=== PATIENT | female | born 1945 | race Caucasian/White ===

== ENCOUNTER 2016-06-15 15:20 | Inpatient (IN) | payer MEDICARE, OTHER ==
[~2016-06-15] VITALS: Ht 165.1 cm; Wt 74.2 kg
--- NOTE | 2016-06-15 15:25 | NUR ---
Pt admitted to room 316 via ambulation at this time.
[2016-06-15 16:07] LABS: BASOPHILS % (AUTO) 1 % (0-2); EOSINOPHILS # (AUTO) 0.1 10^3uL; EOSINOPHILS % (AUTO) 2 % (0-4); MEAN CORPUSCULAR HEMOGLOBIN 28.6 PG (26.0-34.0); MEAN CORPUSCULAR HGB CONC 32.8 g/dL (31.0-37.0); MEAN CORPUSCULAR VOLUME 87 FL (80-100); MEAN PLATELET VOLUME 10.2 FL (6.0-9.5); MONOCYTES # (AUTO) 0.5 X10^3; MONOCYTES % (AUTO) 7 % (3-11); NEUTROPHILS # (AUTO) 3.9 X10^3; NEUTROPHILS % (AUTO) 59 % (51-67); PLATELET COUNT 207 10^3uL (150-450); WHITE BLOOD COUNT 6.51 10^3uL (4.0-11.0)
[2016-06-15 16:16] VITALS: BP 138/89
[2016-06-15 16:20] LABS: ALBUMIN 4.4 g/dL (3.4-5.0); ALKALINE PHOSPHATASE 110 U/L (38-126); ANION GAP 15.7 MEQ/L (3-15); BUN/CREATININE RATIO 16 (10-20); CALCULATED IONIZED CALCIUM 3.8 mg/dL (3.8-4.6); MAGNESIUM* 2.3 mg/dL (1.6-2.3); TOTAL PROTEIN 8.1 g/dL (6.4-8.5)
[2016-06-15] MEDS ORDERED: MAGNESIUM HYDROXIDE 80MG/ML (MILK OF MAGNESIA) 30 ML UDC PO PRN (17:05)
[2016-06-15] MEDS ORDERED: POLYETHYLENE GLYCOL 17 GM (MIRALAX) PACKET PO PRN (17:05)
[2016-06-15] MEDS ORDERED: CALCIUM CARBONATE CHEWABLE 300 MG (TUMS) TABLET PO PRN (17:05)
[2016-06-15] MEDS ORDERED: PROMETHAZINE HCL INJ 12.5 MG in SODIUM CHLORIDE 25 ML IV PRN (17:05)
[2016-06-15] MEDS ORDERED: DOCUSATE SODIUM 100 MG (COLACE) CAP PO PRN (17:05)
[2016-06-15] MEDS ORDERED: MAG HYDROX/AL HYDROX/SIMETH 200-200-20/5 ML (MAG-AL PLUS) 30 ML UDC PO PRN (17:05)
[2016-06-15] MEDS ORDERED: FUROSEMIDE 100 MG/10 ML (LASIX) VIAL IV ONE (17:05)
[2016-06-15] MEDS ORDERED: ACETAMINOPHEN 325 MG TAB (TYLENOL) PO PRN (17:05)
[2016-06-15] MEDS ORDERED: ONDANSETRON 4 MG (ZOFRAN) ORAL DISSOLVE TAB PO PRN (17:05)
--- NOTE | 2016-06-15 17:05 | NUR ---
MEDICATION REC COMPLETE-current med list obtained from list provided by patient's PCP and patient interview.
[2016-06-15 18:02] LABS: BILIRUBIN,URINE Negative (Negative); CLARITY,URINE Clear; COLOR,URINE Yellow; GLUCOSE, URINE (UA) Negative (Negative); LEUKOCYTE ESTERASE ,URINE Negative (Negative); PH,URINE 5.5 (5.0 - 8.0); UROBILINOGEN,URINE 0.2 mg/dL (0.2-1.0)
[2016-06-15] MEDS ORDERED: NS FLUSH 10 ML PRN IV (18:05)
[2016-06-15] MEDS ORDERED: NS FLUSH 3 ML PRN IV (18:05)
[2016-06-15] MEDS: DILTIAZEM 60 MG (CARDIZEM) TAB PO SCH (18:18)
--- NOTE | 2016-06-15 18:40 | NUR ---
Pt ambulates to/from bathroom indep. One time dose of Diltiazem 60mg given now.
--- NOTE | 2016-06-15 19:40 | NUR ---
Pt is sitting up in bed watching tv, alert and oriented x 4, Resp are even and nonlabored, LCTAB, tele is a-fib at 118, BS are active x 4 quadrants. Denies pain or discomfort at this time. SL is patent, no redness, swelling, or s/s of infection noted at this time. See assessment for further information. Call light is in reach, will continue to monitor.
[2016-06-15 19:43] VITALS: BP 123/86
--- NOTE | 2016-06-15 20:57 | NUR ---
Pt instructed on incentive spirometry, 1500 ml x 5 with good technique and effort.
[2016-06-15] MEDS: CLOBETASOL 0.05% TOP SCH (21:05)
[2016-06-16] MEDS: DILTIAZEM 60 MG (CARDIZEM) TAB PO SCH (00:10)
[2016-06-16 00:21] VITALS: BP 107/81
[2016-06-16 03:46] VITALS: BP 102/54
--- NOTE | 2016-06-16 04:42 | NUR ---
Pt is resting in bed, has been up multiple times to use the restroom. Pt reports that she feels like her feet are cramping, denied need for Tylenol, put did allow us to apply warm blankest to feet to help ease discomfort. Pt reports she had this before when she took Lasix and it was because her potassium was low. Educated pt that her potassium was WNL when lab was drawn at 1600, and that she would be receiving Potassium supplement daily. Pt verbalized understanding at this time.
[2016-06-16 06:12] LABS: ALBUMIN 4.1 g/dL (3.4-5.0); ANION GAP 15.9 MEQ/L (3-15); PHOSPHORUS 4.6 mg/dL (2.4-4.9)
[2016-06-16 06:24] LABS: BASOPHILS % (AUTO) 1 % (0-2); EOSINOPHILS # (AUTO) 0.1 10^3uL; EOSINOPHILS % (AUTO) 1 % (0-4); LYMPHOCYTES # (AUTO) 2.3 X10^3; MEAN CORPUSCULAR HEMOGLOBIN 28.7 PG (26.0-34.0); MEAN CORPUSCULAR HGB CONC 33.4 g/dL (31.0-37.0); MEAN CORPUSCULAR VOLUME 86 FL (80-100); MEAN PLATELET VOLUME 10.6 FL (6.0-9.5); MONOCYTES # (AUTO) 0.7 X10^3; MONOCYTES % (AUTO) 9 % (3-11); NEUTROPHILS # (AUTO) 4.2 X10^3; NEUTROPHILS % (AUTO) 58 % (51-67); PLATELET COUNT 203 10^3uL (150-450)
[2016-06-16 07:39] VITALS: BP 105/73
[2016-06-16] MEDS ORDERED: POTASSIUM CHLORIDE ER 20 MEQ TABLET PO SCH (08:00)
--- NOTE | 2016-06-16 08:15 | NUR ---
NUTRITION ASSESSMENT Level 1 Patient: Felicitas Mendes Age/Sex: 70/F Date Screened: 06-16-16 Weight: 166.1#/75.5 kg Height: 65 inches Primary Diagnosis: acute-on chronic CHF Diet Order: 2 g. sodium Relevant labs: glucose 101 Food allergies: N Nutrition Assessment Criteria Age over 80: N Body Mass Index (BMI) under 19: N Admission Screening Indicates Risk? N Moderate/High Risk Diagnosis: 6 points TPN or PPN: N NPO or clear liquid diet: N Serum Glucose <70 or >180: N Hgb A1c >6.7: N/A Total: 6 points Risk Screen: __ Patient at low nutritional risk based on available data; reevaluate in 5-7 days __ Patient at moderate nutritional risk based on available data; reevaluate in 3-5 days _X_ Patient at high nutritional risk; complete Nutrition Assessment within 48 hours of admission.
--- NOTE | 2016-06-16 08:40 | NUR ---
Dr. Rodriguez at bedside Dr. Chen at bedside- discusses plan of care for day in length- notifies this nurse of patient understanding.
[2016-06-16] MEDS ORDERED: FUROSEMIDE 100 MG/10 ML (LASIX) VIAL IV SCH (09:00)
[2016-06-16] MEDS: NS FLUSH 3 ML DAILY IV SCH (09:00)
[2016-06-16] MEDS: ENOXAPARIN 40 MG/0.4 ML (LOVENOX) SYR SC SCH (09:00)
[2016-06-16] MEDS: POTASSIUM CHLORIDE ER 20 MEQ TABLET PO SCH ×2 (09:15→19:57)
[2016-06-16] MEDS: DILTIAZEM CD 180 MG (CARDIZEM CD) CAP PO SCH (09:15)
[2016-06-16] MEDS: ASPIRIN 81 MG CHEW (CHILDREN'S ASA) PO SCH (09:15)
[2016-06-16] MEDS: CLOBETASOL 0.05% TOP SCH ×2 (09:17→19:56)
--- NOTE | 2016-06-16 09:22 | NUR ---
NUTRITION ASSESSMENT Level II Patient: Felicitas Mendes Age/Sex: 70/F Date Assessed: 06-16-16 ASSESSMENT Pertinent History: Patient admitted with acute-on chronic CHF and screened at high nutritional risk secondary to diagnosis. PMHx includes mitral valve prolapse, a fib and CHF. She lives at home with her . Pt. reports weight has been stable and denies GI concerns. Noted 2+ BLE edema on admission, down to 1+ edema today. Noted plans to have mitral valve replacement soon. Meds/Nutrition: Linda Tracey Weight: 166.1#/75.5 kg Height: 65 inches Body Mass Index (BMI): 27.7 [place] Body Weight : 125#/56.8 kg % IBW: 132% GASTROINTESTINAL Appetite: fair, eating 50% Diet Order: 2 g. sodium Unintentional loss of >10 lbs. in 3 months: N Difficult to chew/swallow: N Diabetes: N Relevant Labs: glucose 101 Calculations for Nutritional Assessment Estimated calorie needs: 22-25 kcals/kg = 1,650-1,875 kcals Estimated protein needs: 1.0-1.2 g/kg = 75-90 g./day DIAGNOSIS 1. Nutrition Diagnosis: Decreased sodium needs related to heart failure as evidenced by acute-on chronic CHF with BLE edema. NUTRITIONAL INTERVENTION Goal: Patient will receive adequate nutrition to meet her needs. Plan: Will provide 2 g. sodium diet as ordered and monitor intake for adequacy. Expect weight to decrease with diuresis. MONITORING & EVALUATION _X_ Monitor patients menu selections _X_ Monitor patients food intake per nursing notes __ Monitor NPO/clear liquid days _X_ Monitor lab values __ Monitor I&O _X_ Other--will monitor weight
--- NOTE | 2016-06-16 09:38 | NUR ---
Pt hesitant to take AM meds- states that the Aspirin looks different than it does at home. Explained to patient that the hospital may use different brands of medications than she uses at home. States she is somewhat nauseous after eating bfst. Offered Zofran, but patient refuses. Crackers given at her request. at bedside.
[2016-06-16] MEDS: FUROSEMIDE 20 MG (LASIX) TAB PO SCH ×2 (10:20→15:48)
[2016-06-16 11:22] VITALS: BP 106/74
--- NOTE | 2016-06-16 14:30 | NUR ---
Attempted to administer 1400 dose of Lasix - pt refused to take at this time- states she will take it at 4pm because she didn't take the 1020 dose until closer to noon- she had laid it back on table instead of taking them. will attempt to give around 4pm
--- NOTE | 2016-06-16 15:51 | NUR ---
Pt takes 1400 dose of Lasix at this time. States she has "Jumpy legs" and that her whole family has- states this is caused from inactivity- encouraged patient to ambulate halls- refused to ambulate halls- states "I don't want to walk by those people coughing."
--- NOTE | 2016-06-16 16:15 | NUR ---
Nessa Gonzalez BULK DRIVER notifies this nurse of 5 beat run of Vtach then back to Af[facility]- Dr. Chen notified. Pt denies feeling fluttering or palpitations.
[2016-06-16 16:17] VITALS: BP 113/70
--- NOTE | 2016-06-16 19:45 | NUR ---
Pt is sitting up in bed watching tv, is at bedside,alert and oriented x 4, Resp are even and nonlabored, LCTAB, tele is a-fib at 102, BS are active x 4 quadrants. Denies pain or discomfort at this time. SL is patent, no redness, swelling, or s/s of infection noted at this time. See assessment for further information. Call light is in reach, will continue to monitor.
[2016-06-16 19:55] VITALS: BP 110/66
[2016-06-17 00:22] VITALS: BP 103/73
[2016-06-17 04:00] VITALS: BP 107/74
--- NOTE | 2016-06-17 04:03 | NUR ---
Pt is resting in bed asleep, does not appear in pain or discomfort at this time, call light is in reach, will continue to monitor.
[2016-06-17 06:25] LABS: ALBUMIN 3.9 g/dL (3.4-5.0); ANION GAP 14.8 MEQ/L (3-15); MAGNESIUM* 2.1 mg/dL (1.6-2.3); PHOSPHORUS 4.6 mg/dL (2.4-4.9)
[2016-06-17 08:18] VITALS: BP 108/79
[2016-06-17] MEDS: ASPIRIN 81 MG CHEW (CHILDREN'S ASA) PO SCH (09:09)
[2016-06-17] MEDS: FUROSEMIDE 20 MG (LASIX) TAB PO SCH (09:09)
[2016-06-17] MEDS: NS FLUSH 3 ML DAILY IV SCH ×2 (09:09→09:19)
[2016-06-17] MEDS: DILTIAZEM CD 180 MG (CARDIZEM CD) CAP PO SCH (09:10)
[2016-06-17] MEDS: POTASSIUM CHLORIDE ER 20 MEQ TABLET PO SCH (09:10)
[2016-06-17] MEDS: ENOXAPARIN 40 MG/0.4 ML (LOVENOX) SYR SC SCH ×2 (09:11→09:17)
[2016-06-17] MEDS: CLOBETASOL 0.05% TOP SCH (09:11)
--- NOTE | 2016-06-17 09:30 | NUR ---
PT REFUSES LOVENOX, STS "I AM GOING HOME TODAY". DR VILLA NOTIFIED AT [id number] PT WOULD LIKE TO [facility] TO [facility] OLIVEIRA OBTAINED TO [employer] TELE
--- NOTE | 2016-06-17 12:05 | NUR ---
DISCHARGE INST PROVIDED VERBALLY & PER PRINTED PACKET, PT DENIES QUESTIONS OR CONCERNS, VERBALIZES UNDERSTANDING
--- NOTE | 2016-06-17 12:15 | NUR ---
PT DISCHARGED, AMB. WITH , ACCOMPANIED BY EZIO OROZCO
== END 2016-06-17 12:15 | disposition home or self-care (01) | DRG 292 ==
LOC: MED/SURG 15:20
PROVIDERS: ADMIT Internal Medicine; ATTEND Internal Medicine
DX: I50.9 Heart failure, unspecified (principal); I47.2 Ventricular tachycardia; I48.92 Unspecified atrial flutter; I34.1 Nonrheumatic mitral (valve) prolapse; I48.91 Unspecified atrial fibrillation; R21 Rash and other nonspecific skin eruption; Z79.82 Long term (current) use of aspirin
CPT/HCPCS: 36415; 71020; 80053; 80069; 81003; 83735; 83880; 84443; 84484; 85025; 86140; 93005

== ENCOUNTER → 2016-06-19 | Outpatient (CLI) | payer MEDICARE, OTHER ==
[2016-06-19 08:56] LABS: ALBUMIN 4.4 g/dL (3.4-5.0); ANION GAP 16.1 MEQ/L (3-15); MAGNESIUM* 2.5 mg/dL (1.6-2.3)
== END ==
LOC: LAB 08:21
PROVIDERS: ATTEND Internal Medicine
DX: I50.9 Heart failure, unspecified (principal); I47.2 Ventricular tachycardia
CPT/HCPCS: 36415; 80069; 83735; 83880

== ENCOUNTER → 2016-08-08 | Outpatient (REF) | payer MEDICARE, OTHER ==
[~2016-08-08] MED LIST: AC325T PO; ASPI-894 PO; CLOB15CR2 TOP; DLT180CCR PO; FURO40TA4 PO; KCL20TCR PO; MGX400T PO; MTP25TSR PO
[2016-08-08 13:01] LABS: ANION GAP 16.4 MEQ/L (3-15)
== END ==
LOC: LAB 11:53
PROVIDERS: ATTEND Family Medicine
DX: Z51.81 Encounter for therapeutic drug level monitoring (principal); I35.1 Nonrheumatic aortic (valve) insufficiency; I48.2 Chronic atrial fibrillation
CPT/HCPCS: 80048; 84443